=== PATIENT | male | born 1955 | race Caucasian/White ===

== ENCOUNTER 2023-10-15 07:33 | Emergency (ER) | payer OTHER, MEDICAID ==
[~2023-10-15] VITALS: Ht 175.3 cm; Wt 82.0 kg
[2023-10-15 07:39] VITALS: O2SAT 99
[2023-10-15 08:16] LABS: BASOPHILS % 0.8 % (0.0-2.0); EOSINOPHILS % 1.1 % (0.0-5.0); HEMOGLOBIN. 13.7 g/dL (14.0-18.0); LYMPHOCYTES % 15.3 % (20.0-50.0); MEAN CORPUSCULAR HEMOGLOBIN 33.2 pg (28.0-32.0); MEAN CORPUSCULAR HGB CONC 34.3 g/dL (31.0-37.0); MEAN CORPUSCULAR VOLUME 96.8 fL (80.0-94.0); MEAN PLATELET VOLUME 6.9 fl (7.4-10.4); MONOCYTES % 11.9 % (2.0-8.0); NEUTROPHILS % 70.9 % (40.0-76.0); PLATELET 145 x1000/uL (130-400); RED BLOOD CELL COUNT 4.13 mill/uL (4.7-6.1); RED CELL DISTRIBUTION WIDTH 15.6 % (11.6-14.6); WHITE BLOOD COUNT 9.7 x1000/uL (4.5-11.0)
[2023-10-15 08:17] LABS: CHLORIDE 101 mEq/L (98-107); POTASSIUM 3.6 mEq/L (3.5-5.1); SODIUM 136 mEq/L (136-145)
[2023-10-15 08:19] LABS: CALCIUM 9.3 mg/dL (8.7-10.4); CARBON DIOXIDE 23 mEq/L (21-32)
[2023-10-15 08:24] LABS: CREATININE 1.9 mg/dL (0.6-1.3); ETHANOL BLOOD 204 mg/dL (<10); GLUCOSE 113 mg/dL (70-105); UREA NITROGEN BLOOD 35 mg/dL (9-23)
[2023-10-15 08:28] LABS: BILIRUBIN TOTAL 1.3 mg/dL (0.1-1.0); PROTEIN TOTAL 8.6 g/dL (6.0-8.3)
[2023-10-15 08:29] LABS: ACETAMINOPHEN < 2 ug/mL (10-30); ALANINE AMINOTRANSFERASE 163 IU/L (10-49); ASPARTATE AMINOTRANSFERASE 178 IU/L (<34)
[2023-10-15 11:27] LABS: *AMPHETAMINES SCREEN URINE NEGATIVE (NEGATIVE); *BARBITURATES SCREEN URINE NEGATIVE (NEGATIVE); *BENZODIAZEPINES SCREEN URINE NEGATIVE (NEGATIVE); *COCAINE SCREEN URINE NEGATIVE (NEGATIVE); CANNABINOID URINE SCREEN NEGATIVE (NEGATIVE); ECSTASY MDMA SCREEN URINE NEGATIVE (NEGATIVE); METHADONE URINE SCREEN Neg (NEGATIVE); OPIATES URINE SCREEN NEGATIVE (NEGATIVE); PHENCYCLIDINE URINE SCREEN NEGATIVE (NEGATIVE)
[2023-10-15] MEDS: SODIUM CHLORIDE 0.9% 1,000 ML IV ONE (11:45)
[2023-10-15 11:48] LABS: CLARITY URINE CLEAR (CLEAR); COLOR URINE YELLOW (YELLOW); GLUCOSE URINE 3+ (NEGATIVE); KETONES URINE NEGATIVE (NEGATIVE); OCCULT BLOOD URINE 1+ (NEGATIVE); PROTEIN URINE TRACE (NEGATIVE)
[2023-10-15 11:49] LABS: LEUKOCYTE ESTERASE URINE NEGATIVE (NEGATIVE); NITRITE URINE NEGATIVE (NEGATIVE); UROBILINOGEN URINE 0.2 E.U./dL (0.2-1.0)
[2023-10-15 11:51] LABS: BACTERIA URINE RARE; RBC URINE NONE SEEN /hpf (0-2); SQUAMOUS EPITHELIAL CELL URINE NONE SEEN /lpf (RARE/1+); WBC URINE 0-2 /hpf (0-2); YEAST URINE NONE SEEN
[2023-10-15] MEDS: FLUOXETINE HCL 10 MG CAPSULE PO SCH (19:30)
[2023-10-15] MEDS: CHLORDIAZEPOXIDE 25MG CAPSULE PO ONE (20:19)
[2023-10-15] MEDS: CLONIDINE 0.1MG TABLET PO ONE (22:07)
[2023-10-15 23:09] VITALS: BP 157/86; PULSE 94; RESP 18; TEMP 97.8
== END 2023-10-15 23:54 ==
LOC: ER 08:17
DX: R45.851 Suicidal ideations (principal); F32.9 Major depressive disorder, single episode, unspecified; N17.9 Acute kidney failure, unspecified; I10 Essential (primary) hypertension; F10.10 Alcohol abuse, uncomplicated; Z20.822 Contact with and (suspected) exposure to COVID-19
CPT/HCPCS: 80053; 80305; 81003; 80307; 80329; 80320; 85025; 36415; 99285; 87426; J7030; G0480

== ENCOUNTER 2024-08-19 15:50 | Emergency (ER) | payer OTHER, MEDICAID ==
[~2024-08-19] VITALS: Ht 177.8 cm; Wt 81.0 kg
[2024-08-19 16:00] VITALS: O2SAT 99
[2024-08-19] MEDS: ACETAMINOPHEN 325MG TABLET PO STA (16:43)
[2024-08-19] MEDS: ONDANSETRON HCL 4MG/2ML INJ IV STA (16:43)
[2024-08-19] MEDS: MORPHINE SULFATE 4 MG/ML INJ (FOR IV/IM USE) IV STA (16:43)
[2024-08-19] MEDS: KETOROLAC 30MG/ML VIAL IM STA (16:43)
[2024-08-19 16:45] LABS: HEMATOCRIT. 40.1 % (42.0-52.0); HEMOGLOBIN. 13.7 g/dL (14.0-18.0); MEAN CORPUSCULAR HGB CONC 34.1 g/dL (31.0-37.0); MEAN CORPUSCULAR VOLUME 96.6 fL (80.0-94.0); MEAN PLATELET VOLUME 7.2 fl (7.4-10.4); PLATELET 176 x1000/uL (130-400); RED BLOOD CELL COUNT 4.15 mill/uL (4.7-6.1); RED CELL DISTRIBUTION WIDTH 14.6 % (11.6-14.6)
[2024-08-19 16:47] LABS: DIFFERENTIAL COMMENT 1
[2024-08-19 16:56] LABS: CHLORIDE 99 mEq/L (98-107); SODIUM 132 mEq/L (136-145)
[2024-08-19 16:57] LABS: CARBON DIOXIDE 18 mEq/L (21-32)
[2024-08-19 17:02] LABS: CREATININE 1.5 mg/dL (0.6-1.3); GLUCOSE 118 mg/dL (70-105)
[2024-08-19 17:03] LABS: TROPONIN I HIGH SENSITIVITY 7 ng/L (3.0-53); UREA NITROGEN BLOOD 30 mg/dL (9-23)
[2024-08-19 17:16] LABS: ETHANOL BLOOD < 10 mg/dL (<10)
[2024-08-19 17:19] LABS: PLATELET ESTIMATE NORMAL
[2024-08-19 18:01] LABS: CLARITY URINE CLEAR (CLEAR); COLOR URINE YELLOW (YELLOW); GLUCOSE URINE 2+ (NEGATIVE); KETONES URINE 1+ (NEGATIVE); LEUKOCYTE ESTERASE URINE NEGATIVE (NEGATIVE); NITRITE URINE NEGATIVE (NEGATIVE); OCCULT BLOOD URINE 1+ (NEGATIVE); PROTEIN URINE TRACE (NEGATIVE); SPECIFIC GRAVITY URINE 1.017 (1.005-1.030)
[2024-08-19] MEDS: CLONIDINE 0.3MG TABLET PO ONE (18:07)
[2024-08-19 18:10] LABS: *AMPHETAMINES SCREEN URINE NEGATIVE (NEGATIVE)
[2024-08-19 18:11] LABS: *BARBITURATES SCREEN URINE NEGATIVE (NEGATIVE); *BENZODIAZEPINES SCREEN URINE NEGATIVE (NEGATIVE); *COCAINE SCREEN URINE NEGATIVE (NEGATIVE); CANNABINOID URINE SCREEN NEGATIVE (NEGATIVE); ECSTASY MDMA SCREEN URINE NEGATIVE (NEGATIVE); METHADONE URINE SCREEN Pos (NEGATIVE); OPIATES URINE SCREEN NEGATIVE (NEGATIVE); PHENCYCLIDINE URINE SCREEN NEGATIVE (NEGATIVE)
[2024-08-19 18:19] LABS: BACTERIA URINE NONE SEEN; RBC URINE 0-2 /hpf (0-2); SQUAMOUS EPITHELIAL CELL URINE RARE /lpf (RARE/1+); WBC URINE NONE SEEN /hpf (0-2)
[2024-08-19] MEDS: CLONAZEPAM 1MG TABLET PO ONE (18:30)
[2024-08-19] MEDS: FOLIC ACID 1 MG, THIAMINE HCL 100 MG, MVI, ADULT NO.1 10 ML in DEXTROSE 5% WATER 1,000 ML IV ONE (18:30)
[2024-08-19] MEDS: LEVETIRACETAM 500MG PREMIX 100 ML IV ONE ×2 (18:57)
[2024-08-19 20:54] LABS: TROPONIN I HIGH SENSITIVITY 18 ng/L (3.0-53)
[2024-08-19 22:10] VITALS: BP 154/74; PULSE 78; RESP 18; TEMP 37.1; O2SAT 99
== END 2024-08-19 22:47 ==
LOC: ER 15:50
DX: R56.9 Unspecified convulsions (principal); E78.5 Hyperlipidemia, unspecified; F41.1 Generalized anxiety disorder; I10 Essential (primary) hypertension
CPT/HCPCS: 80305; 80048; 81003; 80320; 85025; 84484; 36415; 70450; 96367; 96365; 96372; 96375; 99291; J1953; J3490 ×2; J1885; J2405; J3411; J2270; J7070; G0480

== ENCOUNTER 2025-01-03 17:11 | Emergency (ER) | payer OTHER ==
[~2025-01-03] VITALS: Ht 182.9 cm; Wt 100.0 kg
[2025-01-03 17:21] VITALS: BP 114/65; PULSE 81; RESP 18; TEMP 36.9; O2SAT 98
== END 2025-01-03 19:14 | disposition left against medical advice (07) ==
LOC: ER 17:11
DX: G40.909 Epilepsy, unspecified, not intractable, without status epilepticus (principal); F10.129 Alcohol abuse with intoxication, unspecified; I10 Essential (primary) hypertension; Y90.9 Presence of alcohol in blood, level not specified
CPT/HCPCS: 99283